=== PATIENT | female | born 1955 | race Caucasian/White ===

== ENCOUNTER → 2017-02-07 | Outpatient (CLI) | payer OTHER | LOC: EMI 09:48 | DX: M54.40 Lumbago with sciatica, unspecified side (principal); M54.5 Low back pain; M54.16 Radiculopathy, lumbar region; M51.17 Intervertebral disc disorders with radiculopathy, lumbosacral region; M99.73 Connective tissue and disc stenosis of intervertebral foramina of lumbar region | CPT/HCPCS: 72148 ==

== ENCOUNTER 2021-01-10 10:04 | Emergency (ER) | payer MEDICARE, OTHER ==
[~2021-01-10 10:04] MED LIST: CLARITIN10 MG PO; CYMBALTA 30 MG30 MG PO; FLEXERIL 10 MG10 MG PO; GABAPENTIN300 MG PO; GLUCOPHAGE1000 MG PO; LIPITOR TAB 2020 MG PO; NORCO 5-325 TA1 EACH PO; OMEPRAZOLE20 M2 PO; SYNTHROID125 MCG PO; TYLENOL 325MG325 MG PO; VOLTAREN EC 7575 MG PO; VOLTAREN100 GM TP; ZESTRIL2.5 MG PO
[2021-01-10 12:13] LABS: HEMOGLOBIN 11.5 gm/dl (12.3-15.3); RED BLOOD COUNT 4.14 M/UL (4.00-5.10); WHITE BLOOD COUNT 8.4 K/UL (4.5-11.0)
[2021-01-10 12:41] LABS: BUN/CREATININE RATIO 15 (0-10)
[2021-01-10] MEDS ORDERED: ASPIRIN EC325 MG PO (15:00)
== END 2021-01-10 15:20 | disposition home or self-care (01) ==
LOC: ER1 10:04
PROVIDERS: Physician Assistant
DX: G45.9 Transient cerebral ischemic attack, unspecified (principal); M89.9 Disorder of bone, unspecified; E11.9 Type 2 diabetes mellitus without complications; I10 Essential (primary) hypertension; K21.9 Gastro-esophageal reflux disease without esophagitis; E78.5 Hyperlipidemia, unspecified; Z85.850 Personal history of malignant neoplasm of thyroid; Z88.1 Allergy status to other antibiotic agents; Z79.899 Other long term (current) drug therapy; Z79.84 Long term (current) use of oral hypoglycemic drugs
CPT/HCPCS: 36415; 70450; 71045; 80053; 82550; 82553; 83874; 84484; 85025; 93005; 99284

== ENCOUNTER → 2021-03-10 | Outpatient (CLI) | payer MEDICARE, OTHER ==
[~2021-03-10] MED LIST changes: +ASPIRIN EC325 MG PO
== END ==
LOC: NM 09:10
DX: R93.0 Abnormal findings on diagnostic imaging of skull and head, not elsewhere classified (principal); M89.9 Disorder of bone, unspecified
CPT/HCPCS: 78306; A9503

== ENCOUNTER → 2021-03-22 | Outpatient (CLI) | payer MEDICARE, OTHER | LOC: KOH-I 14:33 | DX: C79.51 Secondary malignant neoplasm of bone (principal); Z85.850 Personal history of malignant neoplasm of thyroid; M89.9 Disorder of bone, unspecified | CPT/HCPCS: 77075 ==

== ENCOUNTER → 2021-04-26 | Outpatient (CLI) | payer MEDICARE, OTHER | LOC: EMI 03-29 10:00 | DX: G45.9 Transient cerebral ischemic attack, unspecified (principal) | CPT/HCPCS: 70544; 70551 ==

== ENCOUNTER → 2021-08-10 | Outpatient (CLI) | payer MEDICARE, OTHER | LOC: EMI 08-02 15:00 | DX: M89.9 Disorder of bone, unspecified (principal) | CPT/HCPCS: 70553; A9577 ==

== ENCOUNTER → 2021-09-07 | Outpatient (CLI) | payer MEDICARE, OTHER | LOC: HEART 5 09:26 | DX: I11.9 Hypertensive heart disease without heart failure (principal) | CPT/HCPCS: 93306 ==